=== PATIENT | male | born 1965 | race Caucasian/White ===

== ENCOUNTER 2016-11-19 07:53 | Day surgery (SDC) | payer OTHER ==
[2016-11-14 15:34] VITALS: BMI 22.8
--- NOTE | 2016-11-17 19:59 | HP ---
DATE OF ADMISSION: DATE OF DICTATION: 11/17/2016 DATE OF SURGERY: 11/19/2016 ADMITTING DIAGNOSIS: Chronic pansinusitis nasal polyps, deviated septum. HISTORY OF PRESENT ILLNESS: A 50-year-old man has had a long history of nasal congestion, it is bilateral and complete. He has also had intermittent nasal drainage with purulence as well as sinus pain and pressure. He has used numerous courses of antibiotics, nasal steroid sprays, antihistamines, and oral steroids , and had persistent problems. CT scan of paranasal sinuses shows chronic pansinusitis as well as nasal polyps, and he is now admitted for endoscopic sinus surgery, nasal polypectomy, and possible nasal septoplasty. MEDICAL HISTORY: Primary medical doctor is Dr. Margret Rodriguez. He has a history of high blood pressure and no known allergies. His present medications include fluticasone and Ventolin. He does not smoke. PHYSICAL EXAMINATION: General: Patient is well developed male, in no distress. HEENT: Head is normal. Eyes are clear. Ears are unremarkable. He has some mild tenderness of over the sinuses. Nasal septal deviation is present. The remainder of his head, neck examination is unremarkable. Preoperative labs are pending. CT scan of the paranasal sinuses performed at [facility] on October 22, 2016, demonstrates mucoperiosteal thickening with polyps in both maxillary sinuses, deviation of the septum to the right with blockage of the ostiomeatal units. There was left bassam bullosa and he has significant ethmoid air cell opacification. There are some mucosal changes seen in the frontal sinuses. The sphenoid sinuses are clear. IMPRESSION: Chronic sinusitis involving ethmoid maxillary and frontal sinuses, nasal septal deviation, nasal polyps. PLAN: Endoscopic sinus surgery to address ethmoid maxillary and frontal sinuses , possible septoplasty. INFORMED CONSENT: Patient understands the indications, alternatives, nature of risks and benefits of the proposed surgery. Potential complications including but not limited to anesthesia, bleeding, infection, recurrence of polyps, numbness, hole in the septum, eye injury, brain injury were discussed. He understands and accepts these risks and wishes to proceed with surgery. Questions were answered fully. DANIEL LOMELI M.D. LINDEN/[id number] [facility] HOSPITALDiogenes
--- NOTE | 2016-11-19 09:29 | HP ---
History & Physical Update - History History: No Change - Physical Physical: No Change - Assessment Assessment: No Change - Plan Plan: No Change
[2016-11-19] MEDS ORDERED: COCAINE HCL 4% TOPICAL SOLUTION 4 ML BOTTLE TP ONE (09:45)
[2016-11-19] MEDS ORDERED: MIDAZOLAM HCL 2 MG/2 ML SINGLE DOSE VIAL ONE (09:49)
[2016-11-19] MEDS ORDERED: ACETAMINOPHEN INJECTION 100 ML IVPB ONE (09:54)
[2016-11-19] MEDS ORDERED: LIDOCAINE 1%/EPI 1:100000 (50 ML MULTI DOSE VIAL) ONE (09:54)
[2016-11-19] MEDS ORDERED: PROPOFOL 20 ML ONE ×2 (10:14)
[2016-11-19] MEDS ORDERED: ROCURONIUM BROMIDE 50 MG/5 ML VIAL ONE (10:14)
[2016-11-19] MEDS ORDERED: NEOSTIGMINE METHYLSULFATE 0.5 MG/ML - 10 ML MDV ONE (11:40)
[2016-11-19] MEDS ORDERED: GLYCOPYRROLATE 0.2 MG/1 ML VIAL ONE (11:40)
[2016-11-19] MEDS ORDERED: LIDOCAINE HCL/PF 2% SDV 5ML VIAL ONE (11:43)
[2016-11-19] MEDS ORDERED: BACITRACIN 15 GM TUBE TOPICAL OINTMENT ONE (12:09)
[2016-11-19] MEDS ORDERED: TRIMETHOBENZAMIDE HCL 200MG/2ML INJ IM PRN (12:28)
[2016-11-19] MEDS ORDERED: oxyCODONE HCL 5 MG TABLET PO PRN (12:28)
--- NOTE | 2016-11-19 12:29 | OP ---
Operative Note - Note: Operative Date: 11/19/16 () Pre-Operative Diagnosis: nasal septal deviation, chronic sinusitis (ethmoid, maxillary and frontal) Operation: bilateral endoscopic ethmoidectomy, anterior and posterior; bilateral endoscopic maxillary antrostomy with removal of tissue; bilateral endoscopic frontal sinus exploration; nasal septoplasty; therapeutic outfracture of left inferior turbinate; image guidance Findings: nasal septal deviation to left inferiorly, to right posteriorly chronic polypoid sinusitis: ethmoid >maxillary sinuses, posterior nasal polyps right greater than left left inferior turbinate hypertrophy Implants: none Post-Operative Diagnosis: Same as Pre-op Surgeon: Haroldo Thompson Anesthesiologist/FISH GRADER: Mitch Muller Anesthesia: General Specimens Removed: right nasal polyp and ethmoid tissue, left nasal polyp and ethmoid tissue, right maxillary sinus, left maxillary sinus, nasal septal tissue (right and left ethmoid tissue from specimen collection trap in suction) Estimated Blood Loss (mls): 20 Blood Volume Replaced (mls): 0 Operative Report Dictated: Yes
[2016-11-19] MEDS ORDERED: LACTATED RINGERS SOLUTION 1,000 ML IV SCH (12:30)
[2016-11-19] MEDS ORDERED: ONDANSETRON 4 MG/2 ML VIAL IVPUSH PRN (12:39)
[2016-11-19] MEDS ORDERED: PROMETHAZINE HCL 25 MG/1 ML VIAL IVPUSH PRN (12:39)
[2016-11-19] MEDS ORDERED: PHENYLEPHRINE HCL 10 MG/1 ML SINGLE DOSE VIAL ONE (13:28)
--- NOTE | 2016-11-19 13:34 | OP ---
DATE OF OPERATION: 11/19/2016 PREOPERATIVE DIAGNOSES: Chronic ethmoid sinusitis, chronic maxillary sinusitis, chronic frontal sinusitis, nasal polyps, nasal septal deviation. POSTOPERATIVE DIAGNOSES: Chronic ethmoid sinusitis, chronic maxillary sinusitis, chronic frontal sinusitis, nasal polyps, nasal septal deviation with inferior turbinate hypertrophy. PROCEDURE: Bilateral endoscopic ethmoidectomy, anterior and posterior; bilateral endoscopic maxillary antrostomy with removal of tissue; bilateral endoscopic frontal sinus exploration; nasal septoplasty; outfracture of left inferior turbinate; image guidance. SURGEON: Haroldo Thompson MD ANESTHESIOLOGIST: Mitch Muller MD ANESTHESIA: General with endotracheal tube. INDICATIONS: This 50-year-old male has had longstanding nasal and sinus problems which have failed to improve with appropriate medical therapy. He has nasal obstruction as well as pain and pressure and drainage. Exam demonstrates deviated nasal septum and posterior nasal polyps. CT scan demonstrates chronic ethmoid, maxillary, and frontal sinusitis. He is now brought to surgery for treatment. FINDINGS: Chronic polypoid sinusitis involving bilateral ethmoid sinuses and bilateral maxillary sinuses, obstructed frontal recesses, nasal polyps posteriorly, right greater than left, nasal septal deviation to the left inferiorly and to the right posteriorly, left inferior turbinate hypertrophy. PROCEDURE: Patient was brought to the operating room and placed on the operating table in the supine position. General endotracheal anesthesia was induced to a satisfactory level. He was prepped and draped in the usual fashion for surgery. The nasal septum was injected with lidocaine 1% with epinephrine 1:100,000. Cocaine 4% was packed topically within the nasal cavities. The patient's CT scan data was utilized with the [employer] navigational system. The patient was registered and this was used for image guidance intermittently throughout the case. The nasal pledgets were removed. Nasal endoscopy was performed with the 0-degree telescope. The nasal septum was intact but moderately deviated to the left inferiorly with a broad deflection and to the right posteriorly with a spur affecting the middle meatus. Lidocaine with epinephrine was infiltrated in the middle turbinates and lateral nasal landrum. On the right side, the large nasal polyps were removed with the straight forceps. Cocaine 4% was placed within the middle meati. Attention was 1st turned toward the left paranasal sinuses. The nasal packing was removed. Polyps were removed from the infundibulum and the middle meatus. The uncinate process was removed with the backbiting forceps. Anterior and then posterior ethmoidectomies were performed with the ethmoid forceps as well as the [employer] microdebrider with guidance. The lamina papyracea and the fovea ethmoidalis were preserved. The left maxillary antrostomy was created and polypoid tissue was seen. Some was removed with the giraffe forceps using the 70-degree scope. The remaining mucosa appeared to be reversible disease. There was no pus. Attention was then turned toward the left frontal sinus. The 70-degree scope and giraffe forceps were used. Polypoid tissue was removed from the left frontal sinus and the left frontal ostium was identified. Patency was observed and position was verified using the frontal sinus ostium seeker with guidance. Next, attention was turned toward the right paranasal sinuses. Because of the deviation of the septum and marked polyposis, the right middle turbinate was quite thin and medialized. Anterior and then posterior ethmoidectomy were performed with the forceps and microdebrider. Again, care was taken to preserve the lamina papyracea and the fovea ethmoidalis. The right maxillary sinus was then opened utilizing the upbiting and reverse-cutting forceps. The antrostomy was opened. Polyps were removed with the giraffe forceps and suction. Very thick inspissated mucus was removed. The remaining sinus was visualized and there were no additional lesions visible. The right frontal sinus was then addressed. The 70-degree scope and the giraffe forceps were utilized and polypoid tissue was removed from the right frontal recess. The ostium was identified and its position verified using the frontal sinus suction with the tracker. After assuring patency of all the sinuses, attention was then turned toward the nasal septum. A left anterior septal incision was created. A left mucoperichondrial flap was elevated. The spur was incised and deviated cartilage dissected out. Additional bone was then also dissected and removed with the forceps. The bony cartilaginous junction was identified and and bilateral mucoperiosteal flaps were elevated. The deviation to the right posteriorly was identified and removed with a Tomi-Anayeli instrument. The significant deformities were thereby corrected. Nasal septal tissue was then reimplanted as free grafts after modifying them to be flat and removing any obvious deviations. The nasal septal incision was then closed with interrupted 4-0 chromic. A [id number] quilting suture was also placed in the anterior septum. Finally, the left inferior turbinate appeared to be hypertrophic, primarily soft tissue with a prominent bony angulation. A therapeutic outfracture was performed with the elevator and then the long forceps was then used to lateralize the outfractured left inferior turbinate. Hemostasis was excellent. The nasal cavities were suctioned dry. NasoPore dressings were placed within each ethmoid sinus. Folded Telfa gauze coated with antibiotic ointment and joined with a silk suture were then placed in the inferior nasal cavities. Patient tolerated the procedure well. He was then awakened from general anesthesia and transferred to the PACU in stable condition. Estimated blood loss was 20 mL. He received crystalloid at the end of the procedure. There was no blood replacement. Specimen sent included right nasal polyp and ethmoid tissue, left nasal polyp and ethmoid tissue, right maxillary sinus and left maxillary sinus tissue, nasal septal tissue, as well as right and left ethmoid tissue from the specimen collection trap and the suction line. There were no complications. HAROLDO THOMPSON M.D. LINDEN/[id number]
[2016-11-19 13:46] VITALS: TEMP 98.3
[2016-11-19] MEDS ORDERED: oxyCODONE HCL 5 MG TABLET ONE (14:30)
[2016-11-19] MEDS ORDERED: oxyCODONE HCL 5 MG TABLET PO ONE (14:34)
[2016-11-19 18:08] VITALS: BP 126/76; PULSE 74
--- NOTE | 2016-11-24 13:29 | PATH ---
Surgical Pathology Report Patient Name: DEL REDD [facility]. Rec. #: [id number] /Age/Gender: 1965 (Age: 50) / M Account: [id number] Location: [facility] SURGICAL Taken: 11/19/2016 Received: 11/20/2016 Reported: 11/24/2016 Physicians: Haroldo Thompson M.D. Specimen(s) Received A: LEFT NASAL POLYP AND ETHMOID B: RIGHT NASAL POLYP AND ETHMOID C: RIGHT MAXILLARY SINUS D: LEFT MAXILLARY SINUS E: NASAL SEPTUM F: RIGHT AND LEFT ETHMOID TISSUE Clinical History Septum deviation, chronic sinusitis Final Diagnosis A. NASAL POLYP AND ETHMOID, LEFT, POLYPECTOMY IN ETHMOIDECTOMY: FRAGMENTS OF NASAL POLYP. FRAGMENTS OF SINONASAL MUCOSA WITH CHRONIC INFLAMMATION AND FIBROSIS; FRAGMENTS OF SCLEROTIC APPEARING BONE. B. NASAL POLYP AND ETHMOID, RIGHT, POLYPECTOMY AND ETHMOIDECTOMY: FRAGMENTS OF NASAL POLYP. FRAGMENTS OF SINONASAL MUCOSA WITH MARKED CHRONIC INFLAMMATION AND FOCAL FIBROSIS; FRAGMENTS OF SCLEROTIC APPEARING BONE. C. MAXILLARY SINUS, RIGHT, MAXILLARY ANTROSTOMY: FRAGMENTS OF NASAL POLYP. FRAGMENTS OF SINONASAL MUCOSA WITH CHRONIC INFLAMMATION; SMALL FRAGMENTS OF SCLEROTIC APPEARING BONE. D. MAXILLARY SINUS, LEFT, MAXILLARY ANTROSTOMY: NASAL POLYP. E. NASAL SEPTUM, SEPTOPLASTY: CARTILAGE AND BONE WITHOUT SIGNIFICANT PATHOLOGIC CHANGES. F. ETHMOID TISSUE, RIGHT AND LEFT, ETHMOIDECTOMY: FRAGMENTS OF NASAL POLYPS. SINONASAL MUCOSA WITH CHRONIC INFLAMMATION AND FOCAL FIBROSIS; FRAGMENTS OF SCLEROTIC APPEARING BONE. Electronically Signed Rustam Miller M.D. Gross Description A. Received in formalin labeled "left nasal polyp and ethmoid" is a 2.5 x 2.0 x 0.3 cm aggregate of costello, irregular to polypoid fragments of soft tissue, cartilage and possible bone. The specimen is entirely submitted in 2 cassettes as follows: 1-polyps; 2-remainder of specimen, following decalcification. B. Received in formalin labeled "right nasal polyp and ethmoid" are 2 costello, polypoid portions of soft tissue measuring 2.6 x 1.8 x 0.3 cm and 2.8 x 1.5 x 0.3 cm. Also received within the same container is a 2.3 x 2.2 x 0.3 cm aggregate of costello, irregular to fragmented portions of soft tissue, cartilage and possible bone. The specimen is entirely submitted in 3 cassettes as follows: 1-2-one whole polyp each; 3-remainder of specimen, following decalcification. C. Received in formalin labeled "right maxillary sinus" are 3 costello-brown, polypoid portions of soft tissue ranging from 0.8 x 0.4 x 0.1 cm to 1.3 x 1.0 x 0.3 cm. The specimens are submitted in toto in one cassette. D. Received in formalin labeled "left maxillary tissue" is a 0.9 x 0.9 x 0.2 cm costello, polypoid portion of soft tissue which is submitted in toto in one cassette. E. Received in formalin labeled "nasal septum" is a 1.8 x 1.2 x 0.2 cm aggregate of costello fragments of cartilage and possible bone. The specimen is entirely submitted in one cassette, following decalcification. F. Received in formalin labeled "right and left ethmoid" is a 3.0 x 3.0 x 0.4 cm aggregate of costello-brown soft tissue fragments. The formalin is filtered and the specimen is entirely submitted in 2 cassettes. 11/21/2016 saudi11/21/2016
== END 2016-11-19 17:15 | disposition home or self-care (01) ==
LOC: JASU-SURG 07:53
PROVIDERS: ATTEND Otolaryngology
PROC: 09TU4ZZ Resection of Right Ethmoid Sinus, Percutaneous Endoscopic Approach (ICD-10-PCS; 2016-11-19)
PROC: 8E09XBZ Computer Assisted Procedure of Head and Neck Region (ICD-10-PCS; 2016-11-19)
PROC: 099R4ZZ Drainage of Left Maxillary Sinus, Percutaneous Endoscopic Approach (ICD-10-PCS; 2016-11-19)
PROC: 099Q4ZZ Drainage of Right Maxillary Sinus, Percutaneous Endoscopic Approach (ICD-10-PCS; 2016-11-19)
PROC: 09BM4ZZ Excision of Nasal Septum, Percutaneous Endoscopic Approach (ICD-10-PCS; 2016-11-19)
PROC: 09SL8ZZ Reposition Nasal Turbinate, Via Natural or Artificial Opening Endoscopic (ICD-10-PCS; 2016-11-19)
PROC: 8E09XBZ Computer Assisted Procedure of Head and Neck Region (ICD-10-PCS; principal; 2016-11-19 09:30)
PROC: 09TV4ZZ Resection of Left Ethmoid Sinus, Percutaneous Endoscopic Approach (ICD-10-PCS; 2016-11-19 09:30)
DX: J32.2 Chronic ethmoidal sinusitis (principal); J32.1 Chronic frontal sinusitis; J32.0 Chronic maxillary sinusitis; J33.8 Other polyp of sinus; J34.2 Deviated nasal septum; J34.3 Hypertrophy of nasal turbinates
CPT/HCPCS: 88302-TC; 88304-TC; 94760

== ENCOUNTER 2021-10-03 19:43 | Emergency (ER) | payer OTHER ==
[2021-10-03 19:49] VITALS: BP 154/99; PULSE 94; TEMP 98.6; BMI 25.8
[2021-10-03] MEDS ORDERED: METHOCARBAMOL 500 MG TABLET PO ONE (20:53)
[2021-10-03] MEDS ORDERED: KETOROLAC TROMETHAMINE 30 MG/1 ML VIAL IM ONE (20:53)
[2021-10-03] MEDS ORDERED: KETOROLAC TROMETHAMINE 30 MG/1 ML VIAL ONE (21:00)
[2021-10-03] MEDS ORDERED: METHOCARBAMOL 500 MG TABLET ONE (21:00)
== END 2021-10-03 20:56 | disposition home or self-care (01) ==
LOC: JERFT 19:43
PROC: 3E023GC Introduction of Other Therapeutic Substance into Muscle, Percutaneous Approach (ICD-10-PCS; principal; 2021-10-03)
DX: M25.512 Pain in left shoulder (principal); V49.40XA Driver injured in collision with unspecified motor vehicles in traffic accident, initial encounter
CPT/HCPCS: 99284-25